=== PATIENT | female | born 2000 | race Caucasian/White ===

== ENCOUNTER 2018-07-01 19:56 | Emergency (ER) | payer OTHER, BC ==
[~2018-07-01] VITALS: Ht 160 cm; Wt 62.6 kg
--- NOTE | 2018-07-01 20:24 | NUR ---
PT BIBS. C/O "HAVING COUGH/ CONGESTION AND PAIN FOR A FEW DAYS NOW, FEELS LIKE A COLD" -SOB NOTED. AOX4. AMBULATORY. -DIZZY -N/V
[2018-07-01] MEDS ORDERED: IBUPROFEN 600 MG TABLET PO ONE ×2 (20:30→20:54)
[2018-07-01] MEDS ORDERED: AMOXICILLIN TRIHYDRATE 250 MG CAPSULE ONE (21:48)
[2018-07-01] MEDS ORDERED: AMOXICILLIN TRIHYDRATE 250 MG CAPSULE PO ONE (22:00)
--- NOTE | 2018-07-01 22:00 | NUR ---
pt ok to be discahrged per dr rodriguez. Patient discharged to home in stable condition. Written and verbal after care instructions given. Patient verbalizes understanding of instruction.Patient is awake and alert to self, day, and place. Pt ambulatory with a steady gait
[2018-07-01 22:01] VITALS: BP 115/64
== END 2018-07-01 22:02 | disposition home or self-care (01) ==
LOC: ER 20:02
DX: J02.0 Streptococcal pharyngitis (principal)
CPT/HCPCS: 86403-TC

== ENCOUNTER 2018-08-13 21:21 | Emergency (ER) | payer OTHER, BC ==
[~2018-08-13] VITALS: Ht 160 cm; Wt 63.5 kg
--- NOTE | 2018-08-13 21:46 | NUR ---
BIB FAMILY/ FRIEND WITH C/O RLE/ R KNEE PAIN S/P FALL DURING PLAYING BASKETBALL X30 MIN AGO.VSS . WILL CONT TO MONITOR ,
--- NOTE | 2018-08-13 22:58 | NUR ---
ICE APPLIED TO R KNEE
[2018-08-13] MEDS ORDERED: IBUPROFEN 600 MG TABLET PO ONE ×2 (23:00→23:02)
--- NOTE | 2018-08-13 23:30 | NUR ---
PT TO BE D/C'D HOME . SPOKE TO THE PT AT THE BED SIDE. LAURA WRAP AND CRUTCHES PROVIDED. PT EDUCATION RE USE OFCRUCHES WAS PROVIDED W/ UNDERSTANDING. RX GIVEN TO THE PT. PT WAS INSTRUCTED NOT TO DRIVE. FRIEND WILL PROVIDE THE RIDE BACK HOME. VSS.
--- NOTE | 2018-08-13 23:41 | NUR ---
Patient discharged to home in stable condition. Written and verbal after care instructions given. Patient verbalizes understanding of instruction. STABLE GAIT NOTED
[2018-08-13 23:43] VITALS: BP 146/106
== END 2018-08-13 23:41 | disposition home or self-care (01) ==
LOC: ER 21:34
DX: S83.8X1A Sprain of other specified parts of right knee, initial encounter (principal); W18.39XA Other fall on same level, initial encounter; Y93.66 Activity, soccer; Y92.39 Other specified sports and athletic area as the place of occurrence of the external cause; Y99.8 Other external cause status
CPT/HCPCS: 73564-TC